=== PATIENT | male | born 1980 | race American Indian/Alaskan Native ===

== ENCOUNTER 2018-07-20 07:39 | Emergency (ER) | payer OTHER ==
[2018-07-20 07:43] VITALS: BP 157/90
--- NOTE | 2018-07-20 08:39 | Emergency Department Report ---
ED Lower Extremity HPI - General Chief Complaint: Extremity Injury, Lower Stated Complaint: RT FOOT PAIN Time Seen by Provider: 07/20/18 08:38 Source: patient, family Mode of arrival: Wheelchair Limitations: No Limitations - History of Present Illness Initial Comments: This is a 37-year-old male here report that right foot pain since last week. Denies any trauma. Reports some mild swelling that started a couple days ago. He said he is unable to weight-bear and said the pain started at his heel and move up his big toe. Reports swelling to big toe and lateral foot on the side of the first toe. No medication taken. Pain date of the 10. Worse with movement and touch better rest. Denies any shortness of breath or chest pain MD Complaint: other (right foot pain) Onset/Timin -: week(s) Injury: Foot: Right (pain and swelling) Type of Injury: unknown Place: home Severity: severe Severity scale (0 -10): 8 Improves With: immobilization, rest Worsens With: weight bearing, movement, palpation Context: other (unknown) Associated Symptoms: swelling, unable to bear weight. denies: numbness, tingling Treatments Prior to Arrival: other (none) - Related Data Previous Rx's Medication Instructions Recorded Last Taken Type Diphenoxylate HCl/Atropine 1 each PO TID PRN #14 tablet 11/23/15 Unknown Rx [Lomotil 2.5-0.025 mg Tablet] Acetaminophen/Codeine [Tylenol 1 tab PO Q6H PRN #12 tab 07/20/18 Unknown Rx /Codeine # 3 tab] Colchicine 1.2 mg PO Q8H PRN #12 tablet 07/20/18 Unknown Rx Ibuprofen [Motrin] 600 mg PO Q8H PRN #12 tablet 07/20/18 Unknown Rx methylPREDNISolone [Medrol Dose 4 mg PO DAILY #1 tab.ds.pk 07/20/18 Unknown Rx Percy] Allergies Allergy/AdvReac Type Severity Reaction Status Date / Time No Known Allergies Allergy Verified 07/20/18 07:41 ED Review of Systems ROS: Stated complaint: RT FOOT PAIN Other details as noted in HPI Constitutional: denies: chills, fever Eyes: denies: vision change Respiratory: denies: cough, shortness of breath, wheezing Cardiovascular: denies: chest pain, palpitations, dyspnea on exertion, edema, syncope, paroxysmal nocturnal dyspnea Gastrointestinal: denies: abdominal pain, nausea, vomiting, diarrhea Musculoskeletal: joint swelling, arthralgia. denies: back pain, myalgia Neurological: denies: headache, numbness, paresthesias, abnormal gait, vertigo ED Past Medical Hx - Past Medical History Previous Medical History?: Yes Hx Hypertension: Yes - Surgical History Past Surgical History?: No - Family History Family history: hypertension - Social History Smoking Status: Never Smoker Substance Use Type: Alcohol, Marijuana - Medications Home Medications: Home Medications Medication Instructions Recorded Confirmed Last Taken Type Diphenoxylate HCl/Atropine 1 each PO TID PRN #14 tablet 11/23/15 Unknown Rx [Lomotil 2.5-0.025 mg Tablet] Acetaminophen/Codeine [Tylenol 1 tab PO Q6H PRN #12 tab 07/20/18 Unknown Rx /Codeine # 3 tab] Colchicine 1.2 mg PO Q8H PRN #12 tablet 07/20/18 Unknown Rx Ibuprofen [Motrin] 600 mg PO Q8H PRN #12 tablet 07/20/18 Unknown Rx methylPREDNISolone [Medrol Dose 4 mg PO DAILY #1 tab.ds.pk 07/20/18 Unknown Rx Percy] ED Physical Exam - General Limitations: No Limitations General appearance: alert, in no apparent distress - Head Head exam: Present: atraumatic, normocephalic, normal inspection, other (normal exam) - Eye Eye exam: Present: normal appearance, PERRL, EOMI Pupils: Present: normal accommodation - ENT ENT exam: Present: normal exam, normal orophraynx, mucous membranes moist, TM's normal bilaterally, normal external ear exam - Neck Neck exam: Present: normal inspection, full ROM, other (no C-spine tenderness). Absent: tenderness, lymphadenopathy - Respiratory Respiratory exam: Present: normal lung sounds bilaterally. Absent: respiratory distress, chest wall tenderness - Cardiovascular Cardiovascular Exam: Present: regular rate, normal rhythm, normal heart sounds - Extremities Exam Extremities exam: Present: normal inspection, full ROM (range of motion to all extremities but he reported pain to right foot with dorsiflexion and plantar flexion), tenderness (N and S2 first metatarsal bone area extending in to first tarsal bone.), normal capillary refill, joint swelling (first metatarsal extending into the tarsal area), other (my extremity physical exam except right foot pain with minimal swelling to first metatarsal bone extending into the tarsal bone.). Absent: pedal edema, calf tenderness - Back Exam Back exam: Present: normal inspection, full ROM, other (patient ambulates with a limp). Absent: tenderness, paraspinal tenderness, rash noted - Neurological Exam Neurological exam: Present: alert, oriented X3, normal gait, reflexes normal. Absent: motor sensory deficit - Psychiatric Psychiatric exam: Present: normal affect, normal mood - Skin Skin exam: Present: warm, dry, intact, normal color. Absent: rash ED Course Vital Signs 07/20/18 07:42 Temperature 97.7 F Pulse Rate 91 H Respiratory 18 Rate Blood Pressure 157/90 O2 Sat by Pulse 100 Oximetry - Reevaluation(s) Reevaluation #1: 07/20/18 10:08 Patient given Colcrys 1.2 mg, hydrocodone 5/325 2 tablets by mouth, Decadron 10 mg IM and Toradol 30 mg IMO relief of pain. ED Lower Extremity MDM - Radiology Data Radiology results: report reviewed X-ray three-view right foot dictated by radiologist and report reviewed by myself. No acute findings. See below for details Findings [facility] [address] [place] [address] XRay Report Signed Patient: LAURIE GUTIERRES MR#: [id number] : 1980 Acct:[id number] Age/Sex: 37 / M ADM Date: 07/20/18 Loc: ED Attending Dr: Ordering Physician: ANDRÉS JONES MD Date of Service: 07/20/18 Procedure(s): XR foot 3+V RT Accession Number(s): [id number] cc: ANDRÉS JONES MD Fluoro Time In Minutes: RIGHT FOOT: Nontraumatic pain. The bony architecture is intact. Bony alignment is normal. No soft tissue abnormalities are seen. The joint spaces appear preserved. IMPRESSION: Normal right foot. Transcribed By: Sowmya Dictated By: ODETTE CLINE MD Electronically Authenticated By: ODETTE CLINE MD Signed Date/Time: 07/20/18902 DD/ 1 TD/TT: 07/20/18902 - Medical Decision Making This is a 37-year-old male here for gout flareup. X-ray of his right foot revealed no acute finding. This facilitated by radiologist and reported myself. He was given Halie's 1.2 mg by mouth, Decadron 10 mg IM, Toradol 30 mg IM and hydrocodone 5/325 2 tablets by mouth relief of pain. Vital signs afebrile and discharged home with his family in stable condition with prescription for Medrol Dosepak, Motrin, Tylenol 3 and colcrys - Differential Diagnosis fracture versus dislocation versus sprain versus gout versus MSK pain Critical care attestation.: If time is entered above; I have spent that time in minutes in the direct care of this critically ill patient, excluding procedure time. ED Disposition Clinical Impression: Acute gout Qualifiers: Gout site: foot Gout etiology: unspecified cause Laterality: right Qualified Code(s): M10.9 - Gout, unspecified Disposition: DC- TO HOME OR SELFCARE Is pt being admited?: No Does the pt Need Aspirin: No Condition: Stable Instructions: Acute Gouty Arthritis (ED), Low Purine Diet (ED) Additional Instructions: Please refer to low purine diet and discharge instruction paperwork Take medications as prescribed. 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 3 as this medication causes drowsiness Follow up with your primary care doctor in 3 days If condition worsens, please return to the emergency room Referrals: PRIMARY CAREMD [Primary Care Provider] - 07/23/18 [facility] [Outside] - 3-5 Days Forms: Accompanied Note, Work/School Release Form(ED)
[2018-07-20] MEDS ORDERED: DECADRON IM STA (08:43)
[2018-07-20] MEDS ORDERED: TORADOL IM ONE (08:43)
[2018-07-20] MEDS ORDERED: NORCO 5/325 PO ONE (08:43)
[2018-07-20] MEDS ORDERED: COLCHICINE PO ONE (08:44)
--- NOTE | 2018-07-20 09:23 | XRay Report ---
RIGHT FOOT: Nontraumatic pain. The bony architecture is intact. Bony alignment is normal. No soft tissue abnormalities are seen. The joint spaces appear preserved. IMPRESSION: Normal right foot.
== END 2018-07-20 10:21 | disposition home or self-care (01) ==
LOC: ED 07:39
DX: M10.9 Gout, unspecified (principal); I10 Essential (primary) hypertension; F12.10 Cannabis abuse, uncomplicated
CPT/HCPCS: 73630; 96372; 99283; J1100; J1885

== ENCOUNTER 2019-07-17 10:46 | Emergency (ER) | payer OTHER ==
--- NOTE | 2019-07-17 13:29 | Event Note ---
ED Screening Note Date of service: 07/17/19 Time: 13:24 ED Screening Note: This is a 38 y.o. M. that presents to the ER with left ankle and foot pain for 3 days. Patient states he went to work Monday with worsening pain after work. Denies injury. This initial assessment/diagnostic orders/clinical plan/treatment(s) is/are subject to change based on patients health status, clinical progression and re- assessment by fellow clinical providers in the ED. Further treatment and workup at subsequent clinical providers discretion. Patient/guardian urged not to elope from the ED as their condition may be serious if not clinically assessed and managed. Initial orders include:
[2019-07-17] MEDS ORDERED: traMADol 50 MG TAB PO ONE (13:32)
[2019-07-17] MEDS ORDERED: dexAMETHasone 20 MG/5 ML VIAL IM ONE (13:32)
[2019-07-17] MEDS ORDERED: dexAMETHasone 20 MG/5 ML VIAL ONE (13:35)
[2019-07-17] MEDS ORDERED: traMADol 50 MG TAB ONE (13:35)
--- NOTE | 2019-07-17 13:40 | Emergency Department Report ---
<JEFFERY MOTT ASHTYNИРИНА - Last Filed: 07/17/19 15:39> ED Lower Extremity HPI - General Chief Complaint: Extremity Injury, Lower Stated Complaint: LT FOOT/ANKLE PAIN Time Seen by Provider: 07/17/19 13:23 Source: patient Mode of arrival: Wheelchair Limitations: No Limitations - History of Present Illness Initial Comments: This is a 38-year-old male that presents to the ER with left ankle pain for 3 days. Patient denies recent injury. Past medical history of gout. Patient states he was drinking more during the holidays. States symptoms started Monday and worse when he got off work Monday. Patient states he is unable to tolerate gentle touch or weight bearing. Denies taking anything for symptomatic relief. Denies recent injury, fever, chills, numbness or tingling, weakness, or redness. MD Complaint: ankle injury (left) Onset/Timin -: days(s) Injury: Ankle: Left Type of Injury: unknown Place: home Severity: severe Severity scale (0 -10): 9 Improves With: immobilization Worsens With: weight bearing, movement, palpation Associated Symptoms: swelling, able to partially bear weight, ambulatory. denies: numbness, tingling - Related Data Previous Rx's Medication Instructions Recorded Last Taken Type Diphenoxylate HCl/Atropine 1 each PO TID PRN #14 tablet 11/23/15 Unknown Rx [Lomotil 2.5-0.025 mg Tablet] Acetaminophen/Codeine [Tylenol 1 tab PO Q6H PRN #12 tab 07/20/18 Unknown Rx /Codeine # 3 tab] Colchicine 1.2 mg PO Q8H PRN #12 tablet 07/20/18 Unknown Rx Ibuprofen [Motrin] 600 mg PO Q8H PRN #12 tablet 07/20/18 Unknown Rx methylPREDNISolone [Medrol Dose 4 mg PO DAILY #1 tab.ds.pk 07/20/18 Unknown Rx Percy] Indomethacin 50 mg PO Q8H PRN #20 capsule 07/17/19 Unknown Rx methylPREDNISolone [Medrol 4MG 4 mg PO DAILY #1 tab.ds.pk 07/17/19 Unknown Rx DOSEPAK (21 tabs)] Allergies Allergy/AdvReac Type Severity Reaction Status Date / Time No Known Allergies Allergy Verified 07/17/19 13:25 ED Review of Systems Constitutional: denies: chills, fever Respiratory: denies: cough, shortness of breath, wheezing Cardiovascular: denies: chest pain, palpitations Gastrointestinal: denies: abdominal pain, nausea, diarrhea Musculoskeletal: joint swelling (left ankle), arthralgia (left ankle pain) Skin: denies: rash, lesions Neurological: denies: headache, weakness, paresthesias Psychiatric: denies: anxiety, depression ED Past Medical Hx - Past Medical History Previous Medical History?: Yes Hx Hypertension: Yes Additional medical history: gout - Surgical History Past Surgical History?: No - Social History Smoking Status: Current Some Day Smoker Substance Use Type: None - Medications Home Medications: Home Medications Medication Instructions Recorded Confirmed Last Taken Type Diphenoxylate HCl/Atropine 1 each PO TID PRN #14 tablet 11/23/15 Unknown Rx [Lomotil 2.5-0.025 mg Tablet] Acetaminophen/Codeine [Tylenol 1 tab PO Q6H PRN #12 tab 07/20/18 Unknown Rx /Codeine # 3 tab] Colchicine 1.2 mg PO Q8H PRN #12 tablet 07/20/18 Unknown Rx Ibuprofen [Motrin] 600 mg PO Q8H PRN #12 tablet 07/20/18 Unknown Rx methylPREDNISolone [Medrol Dose 4 mg PO DAILY #1 tab.ds.pk 07/20/18 Unknown Rx Percy] Indomethacin 50 mg PO Q8H PRN #20 capsule 07/17/19 Unknown Rx methylPREDNISolone [Medrol 4MG 4 mg PO DAILY #1 tab.ds.pk 07/17/19 Unknown Rx DOSEPAK (21 tabs)] ED Physical Exam - General Limitations: No Limitations General appearance: alert, in no apparent distress, obese - Respiratory Respiratory exam: Present: normal lung sounds bilaterally. Absent: respiratory distress - Cardiovascular Cardiovascular Exam: Present: regular rate, normal rhythm. Absent: systolic murmur, diastolic murmur, rubs, gallop - GI/Abdominal GI/Abdominal exam: Present: soft, normal bowel sounds - Extremities Exam Extremities exam: Present: full ROM, normal capillary refill. Absent: calf tenderness - Expanded Lower Extremity Exam Left Upper Leg exam: Present: normal inspection, full ROM Knee exam: Present: normal inspection, full ROM Lower Leg exam: Present: normal inspection, full ROM Ankle exam: Present: full ROM, tenderness (ttp and swelling to lateral malleolus, pain with dorsiflexion and plantar flexion, FROM), swelling. Absent: abrasion, laceration, ecchymosis, deformity, crepidus, dislocation, erythema, anterior draw sign Foot/Toe exam: Present: normal inspection, full ROM Neuro vascular tendon exam: Present: no vascular compromise Gait: Positive: observed and limited by pain - Neurological Exam Neurological exam: Present: alert, oriented X3 - Psychiatric Psychiatric exam: Present: normal affect, normal mood - Skin Skin exam: Present: warm, dry, intact, normal color. Absent: rash ED Lower Extremity MDM - Medical Decision Making Given history, exam and workup I have low suspicion for fracture, dislocation, significant ligamentous injury, septic arthritis, new autoimmune arthropathy, or gonococcal arthropathy. Past medical history of gout. Swelling and ttp to left lateral mallous, pain with dorsiflexion and plantar flexion, FROM. Gout flare. Given analgesics and dexamethosone while in ER. Start medrol dose pack and indomethacin. Discharge home with strict return precautions and instructions for prompt primary care follow up in the next week. ED Disposition Clinical Impression: Gout flare Qualifiers: Gout site: ankle Gout etiology: idiopathic Laterality: right Qualified Code(s): M10.071 - Idiopathic gout, right ankle and foot Disposition: TO HOME OR SELFCARE Is pt being admited?: No Condition: Stable Instructions: Low Purine Diet (ED), Acute Gouty Arthritis (ED), Arthralgia (ED) Additional Instructions: Rest your left ankle. Apply ice to your joint. Elevate left ankle while sitting. Take medication as instructed. Follow up with primary care doctor from the referral list below. Return to the ER if worsening symptoms such as fever, increased swelling, redness, or uncontrolled pain. Prescriptions: Indomethacin 50 mg PO Q8H PRN #20 capsule PRN Reason: Pain , Severe (7-10) methylPREDNISolone [Medrol 4MG DOSEPAK (21 tabs)] 4 mg PO DAILY #1 tab.ds.pk Referrals: [facility] [Provider Group] - 3-5 Days [facility] [Provider Group] - 3-5 Days [facility] [Provider Group] - 3-5 Days Forms: Work/School Release Form(ED) Time of Disposition: 15:14 <JARROD SALGADO - Last Filed: 07/17/19 17:55> ED Review of Systems ROS: Stated complaint: LT FOOT/ANKLE PAIN Other details as noted in HPI ED Course Vital Signs 07/17/19 07/17/19 07/17/19 11:21 13:29 15:36 Temperature 98.3 F 98.5 F Pulse Rate 116 H 90 93 H Respiratory 18 18 Rate Blood Pressure 124/91 135/77 O2 Sat by Pulse 92 92 Oximetry 07/17/19 15:44 Temperature Pulse Rate Respiratory Rate Blood Pressure O2 Sat by Pulse 96 Oximetry ED Lower Extremity MDM - Medical Decision Making Attestation: Available for consultation Critical care attestation.: If time is entered above; I have spent that time in minutes in the direct care of this critically ill patient, excluding procedure time. ED Disposition Is pt being admited?: No
[2019-07-17 15:38] VITALS: BP 135/77
== END 2019-07-17 15:44 | disposition home or self-care (01) ==
LOC: ED 10:46
DX: M10.9 Gout, unspecified (principal); I10 Essential (primary) hypertension; F17.200 Nicotine dependence, unspecified, uncomplicated
CPT/HCPCS: 96372; 99282; J1100

== ENCOUNTER 2019-08-16 08:36 | Emergency (ER) | payer SELFPAY ==
[2019-08-16 08:44] VITALS: BP 135/99
--- NOTE | 2019-08-16 10:58 | Emergency Department Report ---
ED General Adult HPI - General Chief complaint: Extremity Problem,Nontraumatic Stated complaint: GOUT PAIN, LEFT SHOULDER PAIN Time Seen by Provider: 08/16/19 10:12 Source: patient Mode of arrival: Ambulatory Limitations: No Limitations - History of Present Illness Initial comments: Patient is a 39-year-old male presents emergency room with acute gout flare that began last night. He states he began having pain in his left foot and left ankle last night. Patient states that he has also had left shoulder pain that began a week ago. He describes the pain as a spasm. He states that he has been working out. He denies any fall or injury. He denies any fever, nausea, vomiting, diarrhea. He has a past medical history of hypertension. He denies a ny allergies to medications. He states that he does not have a primary care physician. Severity scale (0 -10): 9 - Related Data Previous Rx's Medication Instructions Recorded Last Taken Type Diphenoxylate HCl/Atropine 1 each PO TID PRN #14 tablet 11/23/15 Unknown Rx [Lomotil 2.5-0.025 mg Tablet] Acetaminophen/Codeine [Tylenol 1 tab PO Q6H PRN #12 tab 07/20/18 Unknown Rx /Codeine # 3 tab] Colchicine 1.2 mg PO Q8H PRN #12 tablet 07/20/18 Unknown Rx Ibuprofen [Motrin] 600 mg PO Q8H PRN #12 tablet 07/20/18 Unknown Rx methylPREDNISolone [Medrol Dose 4 mg PO DAILY #1 tab.ds.pk 07/20/18 Unknown Rx Percy] Colchicine 0.6 mg PO DAILY 1 Days #3 capsule 08/16/19 Unknown Rx Indomethacin 50 mg PO Q8H PRN #20 capsule 08/16/19 Unknown Rx methylPREDNISolone [Medrol 4MG 4 mg PO DAILY #1 tab.ds.pk 08/16/19 Unknown Rx DOSEPAK (21 tabs)] Allergies Allergy/AdvReac Type Severity Reaction Status Date / Time No Known Allergies Allergy Verified 07/17/19 13:25 ED Review of Systems ROS: Stated complaint: GOUT PAIN, LEFT SHOULDER PAIN Other details as noted in HPI Comment: All other systems reviewed and negative ED Past Medical Hx - Past Medical History Previous Medical History?: Yes Hx Hypertension: Yes Additional medical history: gout - Surgical History Past Surgical History?: No - Social History Smoking Status: Never Smoker Substance Use Type: Alcohol, Marijuana - Medications Home Medications: Home Medications Medication Instructions Recorded Confirmed Last Taken Type Diphenoxylate HCl/Atropine 1 each PO TID PRN #14 tablet 11/23/15 Unknown Rx [Lomotil 2.5-0.025 mg Tablet] Acetaminophen/Codeine [Tylenol 1 tab PO Q6H PRN #12 tab 07/20/18 Unknown Rx /Codeine # 3 tab] Colchicine 1.2 mg PO Q8H PRN #12 tablet 07/20/18 Unknown Rx Ibuprofen [Motrin] 600 mg PO Q8H PRN #12 tablet 07/20/18 Unknown Rx methylPREDNISolone [Medrol Dose 4 mg PO DAILY #1 tab.ds.pk 07/20/18 Unknown Rx Percy] Colchicine 0.6 mg PO DAILY 1 Days #3 capsule 08/16/19 Unknown Rx Indomethacin 50 mg PO Q8H PRN #20 capsule 08/16/19 Unknown Rx methylPREDNISolone [Medrol 4MG 4 mg PO DAILY #1 tab.ds.pk 08/16/19 Unknown Rx DOSEPAK (21 tabs)] ED Physical Exam - General Limitations: No Limitations General appearance: alert, in no apparent distress - Head Head exam: Present: atraumatic, normocephalic - Eye Eye exam: Present: normal appearance - ENT ENT exam: Present: mucous membranes moist - Respiratory Respiratory exam: Present: normal lung sounds bilaterally. Absent: respiratory distress, wheezes, rales, rhonchi, stridor, chest wall tenderness, accessory muscle use, decreased breath sounds, prolonged expiratory - Cardiovascular Cardiovascular Exam: Present: regular rate, normal rhythm, normal heart sounds. Absent: systolic murmur, diastolic murmur, rubs, gallop - Extremities Exam Extremities exam: Present: other (edema and TTP over the dorsal surface of the left foot and anterior left ankle, no erythema, mildy increased warmth, FROM of the left foot and ankle with mild discomfort upon flexion, ttp over the left trapezius muscle, no bony TTP of the left shoulder, no AC joint tenderness, no sulcus sign, clavicles are equal, no clavicular TTP, neurovascularly intact throughout) - Neurological Exam Neurological exam: Present: alert, oriented X3 - Psychiatric Psychiatric exam: Present: normal affect, normal mood - Skin Skin exam: Present: warm, dry, intact ED Course Vital Signs 08/16/19 08:43 Temperature 97.9 F Pulse Rate 95 H Respiratory 20 Rate Blood Pressure 135/99 [Right] O2 Sat by Pulse 98 Oximetry ED Medical Decision Making - Medical Decision Making Patient is a 39-year-old male presents emergency room with acute gout flare that began last night. He states he began having pain in his left foot and left ankle last night. Patient states that he has also had left shoulder pain that began a week ago. He describes the pain as a spasm. He states that he has been working out. He denies any fall or injury. He denies any fever, nausea, vomiting, diarrhea. He has a past medical history of hypertension. He denies any allergies to medications. He states that he does not have a primary care physician. vitals are normal. on exam: edema and TTP over the dorsal surface of the left foot and anterior left ankle, no erythema, mildy increased warmth, FROM of the left foot and ankle with mild discomfort upon flexion, ttp over the left trapezius muscle, no bony TTP of the left shoulder, no AC joint tenderness, no sulcus sign, clavicles are equal, no clavicular TTP, neurovascularly intact throughout. Examination consistent with gout flare and trapezius strain. no signs of deformity or acute fracture or dislocation, no septic arthritis, no need for emergent imaging at this time. Given prescription for prednisone, indomethacin, colchicine. adivsed pt to please take medication as prescribed. May use ice, heat, rest, epsom salt bath. Follow-up with a primary care doctor and orthopedic doctor. Return to the emergency room for any new worsening symptoms. - Differential Diagnosis strain, sprain, gout, arthritis, septic joint, RA, DJD Critical care attestation.: If time is entered above; I have spent that time in minutes in the direct care of this critically ill patient, excluding procedure time. ED Disposition Clinical Impression: Gout attack Qualifiers: Gout site: foot Gout etiology: unspecified cause Laterality: left Qualified Code(s): M10.9 - Gout, unspecified Strain of left trapezius muscle Qualifiers: Encounter type: initial encounter Qualified Code(s): S46.812A - Strain of other muscles, fascia and tendons at shoulder and upper arm level, left arm, initial encounter Disposition: TO HOME OR SELFCARE Is pt being admited?: No Does the pt Need Aspirin: No Condition: Stable Instructions: Muscle Strain (ED), Acute Gouty Arthritis (ED) Additional Instructions: please take medication as prescribed. May use ice, heat, rest, epsom salt bath. Follow-up with a primary care doctor and orthopedic doctor. Return to the emergency room for any new worsening symptoms. Prescriptions: Colchicine 0.6 mg PO DAILY 1 Days #3 capsule Indomethacin 50 mg PO Q8H PRN #20 capsule PRN Reason: Pain , Severe (7-10) methylPREDNISolone [Medrol 4MG DOSEPAK (21 tabs)] 4 mg PO DAILY #1 tab.ds.pk Referrals: ALEENA GEE MD [Staff Physician] - 2-3 Days ODETTE ODONNELL MD [Staff Physician] - as needed Time of Disposition: 11:00 Print Language: IVORIAN
== END 2019-08-16 11:12 | disposition home or self-care (01) ==
LOC: ED 08:36
DX: S46.812A Strain of other muscles, fascia and tendons at shoulder and upper arm level, left arm, initial encounter (principal); M10.9 Gout, unspecified; I10 Essential (primary) hypertension; F17.200 Nicotine dependence, unspecified, uncomplicated; X58.XXXA Exposure to other specified factors, initial encounter; Y93.89 Activity, other specified; Y92.89 Other specified places as the place of occurrence of the external cause; Y99.8 Other external cause status
CPT/HCPCS: 99282